=== PATIENT | female | born 1975 | race Caucasian/White ===

== ENCOUNTER 2019-02-17 22:00 | Emergency (ER) | payer BC, OTHER ==
[~2019-02-17] VITALS: Ht 172.7 cm; Wt 131.5 kg
--- NOTE | 2019-02-17 22:58 | ED Lower Extremity ---
General Stated Complaint: RT FOOT LAC/INJ Source: patient, RN notes reviewed History of Present Illness Date Seen by Provider: February 17, 2019 Time Seen by Provider: 22:50 Initial Comments Patient presents c/ what she thinks is an infected puncture of her right foot. States she accidentally stepped on a carpet tack on 02/13/19. She went to her PCP on 02/14/19 and received a tetanus shot and a Rx for Sulfa. Site is becoming more painful and red despite the antibiotic. Onset: yesterday Pain/Injury Location: right heel Method of Injury: other (puncture wound) Modifying Factors: Worse With Movement Allergies and Home Medications Allergies Uncoded Allergies: ERYTHROMYCIN (Allergy, Severe, Hives, 02/17/19) Home Medications Cephalexin 500 Mg Capsule, 500 MG PO Q6H Prescribed by: ELIZA PATEL on 02/17/19 5552 Patient Home Medication List Home Medication List Reviewed: Yes Review of Systems Constitutional: see HPI : No Musculoskeletal: see HPI, other (right heel pain, redness, tenderness, and swelling around a puncture wound) All Other Systems Reviewed Negative Unless Noted: Yes (Negative excepted noted.) Past Tkdcfrb-Becvzz-Myabwb Hx Patient Social History Recent Foreign Travel: No Contact w/Someone Who Travel: No Physical Exam Vital Signs Vital Signs - First Documented 02/17/19 02/17/19 22:20 23:32 Temp 98.7 Pulse 102 Resp 16 B/P (MAP) 153/97 (115) Pulse Ox 100 O2 Delivery Room Air Capillary Refill : Height, Weight, BMI Height: '" Weight: lbs. oz. kg; BMI Method: General Appearance: no apparent distress, obese Cardiovascular: tachycardia Respiratory: no respiratory distress Feet: right foot abrasions/lacerations (puncture wound), right foot infection, right foot pain, right foot soft tissue tenderness, right foot swelling Neurologic/Tendon: normal sensation, normal motor functions, responds to pain Neurologic/Psychiatric: no motor/sensory deficits, alert, normal mood/affect, oriented x 3 Skin: warm/dry, other ((+) erythema surrounding the puncture site right heel; tender to palpation) Progress/Results/Core Measures Results/Orders My Orders Orders - ELIZA PATEL DO Ceftriaxone For Im Use (Rocephin For Im (02/18/19 09:00) Lidocaine 1% Inj 20 Ml (Xylocaine 1% Inj (02/17/19 23:00) Ceftriaxone For Im Use (Rocephin For Im (02/17/19 23:10) Im Injection Antibiotic Ed (02/17/19 ) Vital Signs/I&O 02/17/19 02/17/19 22:20 23:32 Temp 98.7 98.7 Pulse 102 102 Resp 16 B/P (MAP) 153/97 (115) 153/97 (115) Pulse Ox 100 100 O2 Delivery Room Air Room Air Departure Impression Primary Impression: Puncture wound of plantar aspect of right foot with infection Disposition: HOME, SELF-CARE Condition: Stable Departure-Patient Inst. Decision time for Depature: 23:32 Referrals: JANAE TITUS (PCP) Primary Care Physician Patient Instructions: Wound Infection Add. Discharge Instructions: RECOMMEND 1000 mg OF TYLENOL &/OR 400 mg OF IBUPROFEN EVERY 6 HOURS NEEDED FOR PAIN. DO NOT EXCEED 4000 my OF TYLENOL IN A 24 HOUR PERIOD OF TIME. MAY STOP THE SULFA ANTIBIOTIC. Scripts Cephalexin (Cephalexin) 500 Mg Capsule 500 MG PO Q6H for 10 Days, #40 CAP 0 Refills Prov: ELIZA PATEL DO 02/17/19 ELIZA PATEL DO February 17, 2019 22:58
[2019-02-17] MEDS ORDERED: LIDOCAINE 1% INJ 20 ML 20 ML VIAL INJ ONE (23:00)
[2019-02-17] MEDS ORDERED: CEPH500C PO (23:04)
[2019-02-17] MEDS ORDERED: cefTRIAXone 1,000 MG/2.86 ml vial (IM ONLY) ONE (23:10)
[2019-02-17 23:32] VITALS: BP 153/97
[2019-02-18] MEDS ORDERED: cefTRIAXone 1,000 MG/2.86 ml vial (IM ONLY) IM SCH (09:00)
== END 2019-02-17 23:32 | disposition home or self-care (01) ==
LOC: ER FS 22:03
DX: L08.9 Local infection of the skin and subcutaneous tissue, unspecified (principal); S91.311D Laceration without foreign body, right foot, subsequent encounter; W26.8XXA Contact with other sharp object(s), not elsewhere classified, initial encounter
CPT/HCPCS: 96372; 99284

== ENCOUNTER 2021-02-04 20:53 | Emergency (ER) | payer BC ==
[~2021-02-04 20:53] MED LIST: CEPH500C PO
--- NOTE | 2021-02-04 21:02 | ED Lower Extremity ---
General Stated Complaint: LEFT FOOT INJ Source: patient History of Present Illness Date Seen by Provider: Feb 04, 2021 Time Seen by Provider: 20:58 Initial Comments 45-year-old female presenting with pain, bruising, increased tingling and swelling to her left great toe and first joint. She states that on Thursday she had gotten a pedicure and the crusher plant operator had "jabbed" her foot twice at the big toe. Then she also had slipped on some on Thursday night after the pedicure. She has decreased sensation in her feet because of her diabetes and high blood pressure. She had some increased tingling and swelling throughout the day but did not think much of it. Tonight when she got home she noticed that she had bruising to her left great toe and increased swelling. She has no fever or chills. There has been no drainage from the puncture wounds on her great toe. Onset: yesterday Pain/Injury Location: left 1st toe Method of Injury: other (slipped in mud but also had crusher plant operator poke her big toe with instruments) Modifying Factors: Worse With Movement Allergies and Home Medications Allergies Uncoded Allergies: ERYTHROMYCIN (Allergy, Severe, Hives, 02/17/19) Home Medications Amoxicillin/Potassium Clav 1 Each Tablet, 1 EACH PO BID Prescribed by: BRIAN AVILES on 02/04/212139 Patient Home Medication List Home Medication List Reviewed: Yes Review of Systems Constitutional: No chills, No fever EENTM: no symptoms reported Respiratory: no symptoms reported Cardiovascular: no symptoms reported Gastrointestinal: no symptoms reported Genitourinary: no symptoms reported Musculoskeletal: see HPI Skin: see HPI Psychiatric/Neurological: Tingling (increased to left foot) Past Biujeyf-Yqoslc-Kxlsnf Hx Past Med/Social Hx: Reviewed Nursing Past Med/Soc Hx Patient Social History Recent Hopitalizations: No Immunizations Up To Date Tetanus Booster (TDap): Less than 5yrs Seasonal Allergies Seasonal Allergies: No Past Medical History Surgeries: No Respiratory: No Cardiac: No Neurological: No Genitourinary: No Gastrointestinal: No Musculoskeletal: No Endocrine: Yes Diabetes, Insulin dep HEENT: No Cancer: No Psychosocial: No Integumentary: No Blood Disorders: No Physical Exam Vital Signs Vital Signs - First Documented 02/04/21 20:56 Temp 36.5 Pulse 98 Resp 18 B/P (MAP) 190/111 (137) Pulse Ox 99 O2 Delivery Room Air Capillary Refill : Height, Weight, BMI Height: 5'8.00" Weight: 290lbs. 0oz. [id number]; BMI Method:Stated General Appearance: obese, other (anxious) Cardiovascular: normal peripheral pulses Feet: left foot abrasions/lacerations (2 puncture/abrasions to left medial great toe), left foot ecchymosis (left great toe medial aspect along with 2 puncture/abrasion wounds), left foot limited range of motion (left great toe decreased ROM ), left foot soft tissue tenderness, left foot swelling Neurologic/Psychiatric: alert, oriented x 3 Skin: warm/dry Progress/Results/Core Measures Results/Orders My Orders Orders - BRIAN AVILES MD Foot 3 View Left (02/04/21 21:10) Amoxicillin/Clavulanate Tablet (Augmenti (02/04/21 21:11) Vital Signs/I&O 02/04/21 20:56 Temp 36.5 Pulse 98 Resp 18 B/P (MAP) 190/111 (137) Pulse Ox 99 O2 Delivery Room Air Progress Progress Note #1: Progress Note obtain imaging of the left foot to evaluate for bony injury to foot and great toe. With her decreased sensation and diabetes she would be at increased risk of infection so will start her on Augmentin and have her follow-up through the clinic for recheck in a few days. Progress Note #2: Progress Note On my review of the 3 views of the left foot there is no acute fracture or dislocation. There was some soft tissue swelling. Will treat for possible infection with her diabetes and puncture wounds. Continue with the Augmentin and follow-up in clinic for recheck in 2 to 3 days. Counseled on follow-up and return precautions. Diagnostic Imaging Diagonstic Imaging: Xray Plain Films/CT/US/NM/MRI: other (Left foot) Comments NAME: CARA VILLELA Pricila MED REC#: [id number] PT STATUS: REG ER : 1975 PHYSICIAN: BRIAN AVILES MD ADMIT DATE: 02/04/21/ER FS Draft Date of Exam:02/04/21 FOOT 3 VIEW LEFT INDICATION: Pain, swelling, bruising 1st MTP. FINDINGS: There is no fracture, dislocation or acute appearing articular irregularity. No opaque foreign body. No soft tissue gas. There is some spurring at the plantar calcaneus as well as enthesopathy at the Achilles insertion. Swelling about the MTP of the 5th toe. IMPRESSION: Soft tissue swelling at the 5th MTP. No fracture, dislocation or acute appearing abnormalities. Dictated on workstation # [id number] Dict: 02/04/212124 Trans: 02/04/212127 [facility] [id number] Interpreted by: SUKHI SANDHU Electronically signed by: Reviewed: Reviewed by Me Departure Impression Primary Impression: Puncture wound of left great toe w/o foreign body w/o damage to nail Qualified Codes: S91.132A - Puncture wound without foreign body of left great toe without damage to nail, initial encounter Additional Impression: Unspecified sprain of left great toe, initial encounter Disposition: HOME, SELF-CARE Condition: Stable Departure-Patient Inst. Decision time for Depature: 21:30 Referrals: JANAE TITUS (PCP/Family) Primary Care Physician Patient Instructions: Foot Sprain ED, Wound Care ED Add. Discharge Instructions: Take full course of antibiotics to treat for possible infection. Recheck in clinic in 2-3 days to ensure the wound and foot are improving. If having worsening problems or not improving then you may need IV antibiotics to treat for diabetic foot wound. Scripts Amoxicillin/Potassium Clav (Amox Tr-K Clv 875-125 mg Tab) 1 Each Tablet 1 EACH PO BID for puncture wound toe for 10 Days, #20 TAB 0 Refills Prov: BRIAN AVILES MD 02/04/21 BRIAN AVILES MD Feb 04, 2021 21:02
[2021-02-04] MEDS ORDERED: AUGMENTIN 875 MG TAB (AMOXICILLIN/CLAVULANATE) PO STA (21:11)
--- NOTE | 2021-02-04 21:28 | Diagnostic Imaging Report ---
INDICATION: Pain, swelling, bruising 1st MTP. FINDINGS: There is no fracture, dislocation or acute appearing articular irregularity. No opaque foreign body. No soft tissue gas. There is some spurring at the plantar calcaneus as well as enthesopathy at the Achilles insertion. Swelling about the MTP of the 5th toe. IMPRESSION: Soft tissue swelling at the 5th MTP. No fracture, dislocation or acute appearing abnormalities. Dictated by: Dictated on workstation # [id number]
[2021-02-04] MEDS ORDERED: AMOX1TAB12 PO (21:40)
[2021-02-04 21:41] VITALS: BP 190/111
== END 2021-02-04 21:42 | disposition home or self-care (01) ==
LOC: EDUNIT# 20:53 → ER FS 20:55
DX: S91.132A Puncture wound without foreign body of left great toe without damage to nail, initial encounter (principal); S93.502A Unspecified sprain of left great toe, initial encounter; E11.9 Type 2 diabetes mellitus without complications; Z88.1 Allergy status to other antibiotic agents; W01.0XXA Fall on same level from slipping, tripping and stumbling without subsequent striking against object, initial encounter
CPT/HCPCS: 73630